=== PATIENT | female | born 1980 ===

== ENCOUNTER 2019-12-08 05:31 | Inpatient (IN) | payer OTHER ==
[2019-12-08] MEDS ORDERED: Lidocaine 1% (PF) 30 ML VIAL SC PRN (06:16)
[2019-12-08] MEDS ORDERED: Misoprostol 200 MCG TAB PR PRN (06:16)
[2019-12-08] MEDS ORDERED: Butorphanol Tartrate 1 MG/ML VIAL SLOW IVP PRN (06:16)
[2019-12-08] MEDS ORDERED: hydrALAZINE 20 MG/ML VIAL SLOW IVP PRN ×2 (06:16→11:58)
[2019-12-08] MEDS ORDERED: Docusate 100 MG CAP PO PRN (06:16)
[2019-12-08] MEDS ORDERED: Promethazine HCl 25 MG/ML VIAL IM PRN ×2 (06:16→11:58)
[2019-12-08] MEDS ORDERED: Acetaminophen 500 MG TAB PO PRN (06:16)
[2019-12-08] MEDS ORDERED: Methylergonovine 0.2 MG/ML VIAL IM PRN (06:16)
[2019-12-08] MEDS ORDERED: Diphenoxylate HCl/Atropine Tablet PO PRN (06:16)
[2019-12-08] MEDS ORDERED: Ondansetron PF 4 MG/2 ML Vial IVP PRN ×2 (06:16→11:58)
[2019-12-08] MEDS ORDERED: NS / Oxytocin 40 units/1000ml 1,000 ML IV PRN (06:16)
[2019-12-08] MEDS ORDERED: Ibuprofen 800 MG TAB PO PRN (06:16)
[2019-12-08] MEDS ORDERED: Lactated Ringer's 1,000 ML IV SCH (06:30)
[2019-12-08 06:35] LABS: Hemoglobin 14.9 g/dL (12.0-16.0); Mean Corpuscular HGB CONC 33.8 g/dL (32.0-36.0); Mean Corpuscular Hemoglobin 32.5 pg (27.0-31.0); Mean Corpuscular Volume 96.1 fL (78.0-98.0); Mean Platelet Volume 9.4 fL (7.4-10.4); Platelet Count 256 thou/uL (130-400); RBC Distribution Width 12.8 % (11.5-14.5); Red Blood Cell (RBC) Count 4.59 mill/uL (4.20-5.40); White Blood Cell (WBC) Count 10.2 thou/uL (4.8-10.8)
[2019-12-08 06:44] VITALS: BMI 31.1
[2019-12-08] MEDS ORDERED: Fentanyl 4 mcg/Bup 0.1% Cadd 100 ML ONE (06:52)
[2019-12-08] MEDS ORDERED: Lidocaine 1% (PF) 30 ML VIAL ONE (06:58)
[2019-12-08] MEDS ORDERED: NS / Oxytocin 40 units/1000ml 1,000 ML ONE (06:59)
[2019-12-08 07:15] LABS: HBSAg Index 0.16 S/CO (0-0.99); Hep B Surf Ag Non-Reactive S/CO (NonReactive); Syphilis Antibody Nonreactive (Nonreactive); Syphilis Antibody Index 0.04 S/CO (<1.00 Non-Reactive)
--- NOTE | 2019-12-08 08:23 | PDOC.LDHP ---
Labor and Delivery H&P Chief complaint: contractions HPI: 39yo at 40wd by LMP c/w 12w sono with painful ctx. Current gestational age (weeks): 40 Due date: 12/07/19 Dating criteria: last menstrual period Grav: 3 Para: 2 Current complications: none Abnormal US findings: No Past Medical History: denies Current medications: pre- vitamins Previous surgical history: none Allergies/Adverse Reactions: Allergies Allergy/AdvReac Type Severity Reaction Status Date / Time No Known Allergies Allergy Verified 12/08/19 05:52 Social history: none - Physical Exam Vital signs reviewed and normal: yes General: NAD, breathing through contractions Heart: RRR Lungs: CTAB Abdomen: gravid Extremeties: no edema FHT: category 1 [place] contractions every: 3min - Vaginal Exam cm dilated: 8 Effacement: 75% Station: 0 - OB Labs Blood type: A RH: positive Antibody Screen: negative HIV: negative RPR: negative HEPSAg: negative 1 hour GCT: negative GBS: negative Urine drug screen: negative Rubella: immune - Assessment L&D Assessment: term patient in labor - Plan Plan: admit to L&D, labor augmentation if indicated, informed consent obtained, anesthesia consult for pain management
--- NOTE | 2019-12-08 08:26 | PDOC.OPDEL ---
OB Operative/Delivery Note Delivery Dr/Surgeon: Rosalio Assist: n/a Pre-Delivery Diagnosis: active labor Procedure/Post Delivery Dx: spontaneous vaginal delivery Weeks gestation: 40 Anesthesia: none - Findings A Sex: male - Additional Findings/Plan Placenta delivered: spontaneous Repaired Obstetrical Laceration: none Estimated blood loss: 50cc Compilations/Other Findings: shoulder dystocia x 60sec anterior shoulder was right, [facility] and suprapubic given, gentle traction on head with maternal relaxation/pushing techniques given, pt very tense and was contracted around baby's head. No damage noted on gabino eval.
--- NOTE | 2019-12-08 09:22 | PDOC.BPN ---
- Brief Progress Note Encounter Date: 12/08/19 Encounter Time: 09:00 Called to room for evaluation of uterus noted to be well above umbilicus. Exam performed revealing a large amount of clot in the lower uterine segment, which was manually evacuated. Uterus now firm and at umbilicus. Cytotec given. Continue to monitor.
[2019-12-08] MEDS ORDERED: Adacel (T-DAP) 0.5 ML SYRINGE IM ONE (11:58)
[2019-12-08] MEDS ORDERED: NS / Oxytocin 40 units/1000ml 1,000 ML IV SCH (11:58)
[2019-12-08] MEDS ORDERED: HYDROcodone/Acetaminophen 5/325 mg Tablet PO PRN ×2 (11:58)
[2019-12-08] MEDS ORDERED: Milk Of Magnesia 30 ML UDCUP PO PRN (11:58)
[2019-12-08] MEDS ORDERED: Lanolin Ointment 7 GM TUBE TOP PRN (11:58)
[2019-12-08] MEDS ORDERED: Benzocaine-Menthol 82.5 ML CAN TOP PRN (11:58)
[2019-12-08] MEDS ORDERED: Bisacodyl 10 MG SUPP PR PRN (11:58)
[2019-12-08] MEDS ORDERED: diphenhydrAMINE 25 MG CAP PO PRN (11:58)
[2019-12-08] MEDS ORDERED: Preparation H Ointment 28 GM TUBE PR PRN (11:58)
[2019-12-08] MEDS ORDERED: Docusate Calcium (SURFAK) 240 MG CAP PO SCH (12:15)
[2019-12-08 12:39] LABS: SARS-CoV-2 MS2 Positive; SARS-CoV-2 N Gene Negative; SARS-CoV-2 S Gene Negative; SARS-CoV-2 by NAA Not Detected (NotDetected); SARS-CoV-2 orf1ab Negative
[2019-12-08] MEDS: Ibuprofen 800 MG TAB PO SCH ×2 (14:09→22:13)
[2019-12-08] MEDS: Ferrous Sulfate 325 MG TAB PO SCH (16:34)
[2019-12-08] MEDS: Docusate Calcium (SURFAK) 240 MG CAP PO SCH (22:13)
[2019-12-09] MEDS: Ibuprofen 800 MG TAB PO SCH ×2 (05:08→13:43)
[2019-12-09] MEDS: Ferrous Sulfate 325 MG TAB PO SCH (08:27)
[2019-12-09] MEDS ORDERED: Prenatal Vitamin 1 TAB PO SCH (09:00)
[2019-12-09 09:03] VITALS: BP 136/72; TEMP 98.2
[2019-12-09] MEDS: Docusate Calcium (SURFAK) 240 MG CAP PO SCH (09:43)
== END 2019-12-09 14:15 | disposition home or self-care (01) | DRG 807 ==
LOC: L&D/OP 05:31 → L&D 07:01 → 3SW 12:12
PROVIDERS: ADMIT Family Medicine; ATTEND Family Medicine
PROC: 10E0XZZ Delivery of Products of Conception, External Approach (ICD-10-PCS; principal; 2019-12-08)
DX: O66.0 Obstructed labor due to shoulder dystocia (principal); Z37.0 Single live birth; Z3A.40 40 weeks gestation of pregnancy
CPT/HCPCS: 36415; 51701; 85027; 86780; 86850; 86900; 86901; 87340; 87635; 99285; J0595; J2001; U0003